=== PATIENT | male | born 1945 | race Caucasian/White ===

== ENCOUNTER 2021-03-18 00:47 | Day surgery (SDC) | payer MEDICARE, SELFPAY ==
[2021-02-28 11:08] VITALS: BMI 28.0
[2021-03-18 07:23] VITALS: BP 141/85; PULSE 78; RESP 16; TEMP 36.1; O2SAT 99; BMI 26.9
--- NOTE | 2021-03-18 07:26 | WPDGICN ---
Assessment and Plan Assessment and plan (1) Encounter for screening colonoscopy: Code(s): Z12.11 - Encounter for screening for malignant neoplasm of colon Status: Acute Assessment and Plan: Patient presents for screening colonoscopy. He appears to be at average risk for colon polyp. GI Consult Note Consult date/time: 03/18/21 07:26 HPI: Shaji Sellers is a 75 year old male Referred for screening colonoscopy. Patient states that his current weight appetite bowel movements are normal. Patient denies abdominal pain. He has had no bleeding. His family history is noncontributory. Patient is in general been in good health. Review of Systems Review of Systems: All systems reviewed & are unremarkable except as noted in HPI and below PMFSH Social History Social History Smoking status: Former smoker Alcohol intake: never Substance use: never Substance use type: does not use Living arrangements: with family Spiritual care concerns: No Meds Home Medications and Allergies Home Medications Medication Instructions Recorded Confirmed Type aspirin [Adult Low Dose Aspirin] 81 mg PO DAILY 02/28/21 03/18/21 History irbesartan 75 mg PO DAILY 02/28/21 03/18/21 History Allergies Allergy/AdvReac Type Severity Reaction Status Date / Time No Known Allergies Allergy Verified 03/18/21 07:19 Exam Narrative: Exam Narrative: Physical exam reveals patient be alert. Vital signs stable. HEENT exam is unremarkable. Patient is anicteric. Lungs are clear to auscultation and percussion. Heart is without murmur or extra sounds. Abdominal exam bowel sounds are present soft nontender with no organomegaly. Digital external rectal exam is normal.
[2021-03-18] MEDS: LACTATED RINGERS 1,000 ML 150 ML IV CONT (07:44)
--- NOTE | 2021-03-18 08:02 | P.PNAN_ITS ---
Anes - Initial Pre Proc Eval Procedure: Operation Date: 03/18/21 08:30 Proposed Procedures p Screening Colonoscopy - Freddy Martini MD Date/Time: 03/18/21 08:02 Surgeon: Freddy Martini MD Pre Op Diagnosis: neoplasm screening Patient Data Age: 75 Gender: M Height: 1.78 m Weight: 85.2 kg Last Vital Signs Temp 96.9 F L 03/18/21 07:23 Pulse 78 03/18/21 07:23 Resp 16 03/18/21 07:23 BP 141/85 H 03/18/21 07:23 Pulse Ox 99 03/18/21 07:23 Allergies Allergy/AdvReac Type Severity Reaction Status Date / Time No Known Allergies Allergy Verified 03/18/21 07:19 Home Medications Medication Instructions Recorded Confirmed Type aspirin [Adult Low Dose Aspirin] 81 mg PO DAILY 02/28/21 03/18/21 History irbesartan 75 mg PO DAILY 02/28/21 03/18/21 History Patient hx anesthesia problems: none Family hx anesthesia problems: none [facility] Past Medical History Medical History (Updated 03/18/21 @ 07:59 by Ricci Mandel MD) GERD (gastroesophageal reflux disease) Hypertension Social History Social History Smoking status: Former smoker Alcohol intake: never Substance use: never Substance use type: does not use Living arrangements: with family Spiritual care concerns: No Anes - Eval Final PreProcedure Day of Procedure 03/18/21 08:02 Patient weight: obese Heart: regular rate and rhythm Lungs: clear to auscultation Airway: Mallampati scale class II Neurological: alert and oriented Last oral intake: >/= 8 hours ASA classification: III Emergent: no Anesthetic plan: proceed Anesthesia type and monitoring: general GIVS and standard monitoring Informed Consent: The patient's anesthetic plan and its attendant risks and benefits were discussed with the patient/family/POA. Questions were solicited and answers provided to the satisfaction of the patient/family/POA.
[2021-03-18] MEDS: SIMETHICONE ORAL SUSPENSION 20 MG/0.3 ML 30 ML BOTTLE 0.6 ML IRRIGATION (09:08)
[2021-03-18 09:20] VITALS: BP 110/71; PULSE 62; RESP 28; O2SAT 100
[2021-03-18 09:30] VITALS: BP 112/68; PULSE 60; RESP 20; O2SAT 100
[2021-03-18 09:40] VITALS: BP 116/58; PULSE 62; RESP 18; O2SAT 100
== END 2021-03-18 10:05 | disposition home or self-care (01) ==
PROVIDERS: PCP Family Medicine; Visit Provider Internal Medicine Gastroenterology
PROC: 0DJD8ZZ Inspection of Lower Intestinal Tract, Via Natural or Artificial Opening Endoscopic (ICD-10-PCS; CPT 45378; principal; 2021-03-18 08:30)
DX: Z12.11 Encounter for screening for malignant neoplasm of colon (principal); D12.3 Benign neoplasm of transverse colon; K57.30 Diverticulosis of large intestine without perforation or abscess without bleeding; K64.8 Other hemorrhoids; Z87.891 Personal history of nicotine dependence; Z79.82 Long term (current) use of aspirin
CPT/HCPCS: 45385; 88305; J2704; J7120